=== PATIENT | female | born 1975 | race African-American/Black ===

== ENCOUNTER 2019-03-31 06:44 | Inpatient (IN) | payer OTHER ==
[~2019-03-31] VITALS: Ht 170.2 cm; Wt 94.8 kg
[~2019-03-31 06:44] MED LIST: AZIT250T6 PO; PRED20TA PO
[2019-03-31] MEDS ORDERED: IV NORMAL SALINE 1000ML BAG 1,000 ML IV SCH (06:57)
[2019-03-31] MEDS ORDERED: MECLIZINE HCL 12.5 MG TABLET. PO ONE (07:00)
--- NOTE | 2019-03-31 07:05 | PHYS DOC ---
Past Medical History Past Medical History: Hypertension Past Surgical History: No Surgical History Smoking: Cigarettes (non-smoker) Alcohol Use: Occasionally Drug Use: None Adult General Chief Complaint Chief Complaint: DIZZY/LIGHT HEADED HPI HPI Patient is a 43 y/o female who presents to the ED for evaluation of dizziness. Patient states that she awakened this morning and tried to get out of bed and felt very dizzy. She describes her dizziness both as a sense of rotation as well as a lightheadedness. She has not had any hearing changes or tinnitus, but reports some generalized blurred vision, but is able to see clearly when focusing. Position changes and movements, especially going from laying to sitting up seemed to worsen her dizziness. She has not had any numbness or weakness, reports a mild headache but has had similar headaches and "migraines" in the past, and this headache is not as severe as her prior headaches, she describes her headache is mild. She denies any chest pain shortness of breath. She states she had one prior episode several years ago while , which was attributed to dehydration at the time. The patient states she did vomit a few times, and is having some soreness in her epigastric area secondary to the vomiting, but other than that is not having any pain. Other than as stated above, there are no alleviating or exacerbating factors to the patient's symptoms. Review of Systems Review of Systems Constitutional: Denies fever or chills [] Eyes: Denies redness, or eye pain [] HENT: Denies nasal congestion or sore throat, denies otalgia, hearing changes, or tinnitus. [] Respiratory: Denies cough or shortness of breath [] Cardiovascular: The patient denies any shortness of breath, chest pain, palpitations, or orthopnea [] GI: Denies abdominal pain, bloody stools or diarrhea [] : Denies dysuria or hematuria [] Musculoskeletal: Denies back pain or joint pain [] Integument: Denies rash or skin lesions [] Neurologic: Denies focal weakness or sensory changes [] Endocrine: Denies polyuria or polydipsia [] All other systems were reviewed and found to be within normal limits, except as documented in this note. Current Medications Current Medications Current Medications Medications (Trade) Dose Ordered Sig/Mt Start Time Stop Time Status Last Admin Dose Admin Lorazepam (Ativan Inj) 0.5 mg 1X ONCE 1010/19 07:00 03/31/19 07:01 DC 03/31/19 07:42 0.5 MG Meclizine HCl (Antivert) 50 mg 1X ONCE 03/31/19 07:00 03/31/19 07:01 DC 03/31/19 07:41 50 MG Sodium Chloride 1,000 ml @ 1,000 mls/hr Q1H 03/31/19 06:57 03/31/19 07:56 DC 03/31/19 07:43 1,000 MLS/HR Allergies Allergies Allergies Coded Allergies Type Severity Reaction Last Updated Verified Penicillins Allergy Intermediate rash 04/23/17 Yes Physical Exam Physical Exam PHYSICAL EXAM: CONSTITUTIONAL: Well developed, well nourished HEAD: normocephalic, atraumatic EENT: PERRL, EOMI. there is no ongoing nystagmus at rest, orthopnea or movement. Conjunctivae normal color, sclerae non-icteric; moist mucous membranes. Tympanic membranes are normal bilaterally. NECK: Supple, non-tender; no meningismus. LUNGS: Lungs CTA, breathing even and unlabored. Normal air movement. HEART: Regular rate and rhythm, no murmur CHEST: No deformity; non-tender ABDOMEN: The abdomen is soft, and non-tender, no masses or bruits. EXTREM: Normal ROM; no deformity, no calf tenderness. Normal pulses palpable in all extremities. There is no pedal edema. SKIN: No rash; no diaphoresis NEURO: Alert; normal speech and cognition; CN's grossly intact; strength grossly intact without focal deficit. Lujvzh-yyyk-[id number] and heel castillo testing is normal. Visual [place] are intact by confrontation. Aguila-Hallpike maneuver is positive for reproduction of vertigo with the head to the left. BACK: No CVA TTP. Current Patient Data Vital Signs Vital Signs Date Time Temp Pulse Resp B/P (MAP) Pulse Ox O2 Delivery O2 Flow Rate FiO2 03/31/19 07:39 92 18 100 03/31/19 06:44 98.1 140/90 (107) Room Air 98.1 Lab Values Laboratory Tests Test 03/31/19 07:08 White Blood Count 10.5 x10^3/uL (4.0-11.0) Red Blood Count 4.71 x10^6/uL (3.50-5.40) Hemoglobin 13.0 g/dL (12.0-15.5) Hematocrit 38.8 % (36.0-47.0) Mean Corpuscular Volume 83 fL (79-100) Mean Corpuscular Hemoglobin 28 pg (25-35) Mean Corpuscular Hemoglobin Concent 33 g/dL (31-37) Red Cell Distribution Width 14.4 % (11.5-14.5) Platelet Count 167 x10^3/uL (140-400) Neutrophils (%) (Auto) 91 % (31-73) H Lymphocytes (%) (Auto) 6 % (24-48) L Monocytes (%) (Auto) 3 % (0-9) Eosinophils (%) (Auto) 0 % (0-3) Basophils (%) (Auto) 0 % (0-3) Neutrophils # (Auto) 9.6 x10^3/uL (1.8-7.7) H Lymphocytes # (Auto) 0.6 x10^3/uL (1.0-4.8) L Monocytes # (Auto) 0.3 x10^3/uL (0.0-1.1) Eosinophils # (Auto) 0.0 x10^3/uL (0.0-0.7) Basophils # (Auto) 0.0 x10^3/uL (0.0-0.2) Segmented Neutrophils % 90 % (35-66) H Band Neutrophils % 2 % (0-9) Lymphocytes % 7 % (24-48) L Monocytes % 1 % (0-10) Platelet Estimate Adequate (ADEQUATE) Sodium Level 138 mmol/L (136-145) Potassium Level 4.0 mmol/L (3.5-5.1) Chloride Level 103 mmol/L (98-107) Carbon Dioxide Level 25 mmol/L (21-32) Anion Gap 10 (6-14) Blood Urea Nitrogen 9 mg/dL (7-20) Creatinine 1.0 mg/dL (0.6-1.0) Estimated GFR (Cockcroft-Gault) 73.2 BUN/Creatinine Ratio 9 (6-20) Glucose Level 141 mg/dL (70-99) H Calcium Level 9.5 mg/dL (8.5-10.1) Total Bilirubin 0.4 mg/dL (0.2-1.0) Aspartate Amino Transferase (AST) 14 U/L (15-37) L Alanine Aminotransferase (ALT) 16 U/L (14-59) Alkaline Phosphatase 69 U/L (46-116) Troponin I Quantitative < 0.017 ng/mL (0.000-0.055) Total Protein 7.9 g/dL (6.4-8.2) Albumin 3.9 g/dL (3.4-5.0) Albumin/Globulin Ratio 1.0 (1.0-1.7) Laboratory Tests 03/31/19 07:08 Laboratory Tests 03/31/19 07:08 EKG EKG []Normal sinus rhythm with a normal rate, leftward axis, normal intervals, there are no acute ischemic ST/T changes. Poor anterior R-wave progression is present. Radiology/Procedures Radiology/Procedures PROCEDURE: CT HEAD WO CONTRAST EXAM: CT Head without IV contrast CLINICAL HISTORY: Dizziness COMPARISON: None. TECHNIQUE: Routine CT of the head without contrast. Soft tissues and bone windows were reviewed. PQRS compliance statement - One or more of the following individualized dose reduction techniques were utilized for this study: 1. Automated exposure control 2. Adjustment of the mA and/or kV according to patient size 3. Use of iterative reconstruction technique FINDINGS: There is no evidence of hemorrhage, mass or extra-axial fluid collection. Gamez-white differentiation is maintained with no evidence of edema. There is no mass effect or shift of the intracranial structures. The ventricles, basilar cisterns and cortical sulci are normal in size and configuration for the patients stated age. The cerebellum and brainstem are unremarkable. The calvarium demonstrates no evidence of fracture or focal lesion. There is normal aeration of the visualized paranasal sinuses and mastoid air cells. The visualized portions of the orbits are normal. IMPRESSION: No evidence for acute intracranial process.[] Course & Med Decision Making Course & Med Decision Making Pertinent Labs and Imaging studies reviewed. (See chart for details) []9:05 AM: The patient's condition remained stable, she still remains with dizziness, and is unable to ambulate secondary to her dizziness. She was poorly tolerant to the Ezra-Hallpike maneuver, I am hesitant to try the Chivo maneuver at this time for further medication. I discussed the case with the hospitalist will admit the patient for further evaluation and management. Dragon Disclaimer Dragon Disclaimer This electronic medical record was generated, in whole or in part, using a voice recognition dictation system. Departure Departure Impression: Primary Impression: Vertigo Disposition: 09 ADMITTED INPATIENT Admitting Physician: DARSHANA Condition: STABLE Referrals: NO PCP (PCP) LANDY MEJIA MD Mar 31, 2019 07:05
[2019-03-31 07:29] LABS: BASO % 0 % (0-3); EOS % 0 % (0-3); HEMATOCRIT 38.8 % (36.0-47.0); LYMPH # 0.6 x10^3/uL (1.0-4.8); LYMPH % 6 % (24-48); MEAN CORPUSCULAR HEMOGLOBIN 28 pg (25-35); MEAN CORPUSCULAR HGB CONC 33 g/dL (31-37); MEAN CORPUSCULAR VOLUME 83 fL (79-100); MONO # 0.3 x10^3/uL (0.0-1.1); MONO % 3 % (0-9); NEUT # 9.6 x10^3/uL (1.8-7.7); NEUT % 91 % (31-73); PLATELET COUNT 167 x10^3/uL (140-400); RED BLOOD COUNT 4.71 x10^6/uL (3.50-5.40); RED CELL DISTRIBUTION WIDTH 14.4 % (11.5-14.5); WHITE BLOOD COUNT 10.5 x10^3/uL (4.0-11.0)
[2019-03-31 07:38] LABS: CALCIUM 9.5 mg/dL (8.5-10.1); GFR 73.2
[2019-03-31 07:43] LABS: ALBUMIN 3.9 g/dL (3.4-5.0); TOTAL BILIRUBIN 0.4 mg/dL (0.2-1.0); TOTAL PROTEIN 7.9 g/dL (6.4-8.2)
--- NOTE | 2019-03-31 07:46 | RAD ---
EXAM: CT Head without IV contrast CLINICAL HISTORY: Dizziness COMPARISON: None. TECHNIQUE: Routine CT of the head without contrast. Soft tissues and bone windows were reviewed. PQRS compliance statement - One or more of the following individualized dose reduction techniques were utilized for this study: 1. Automated exposure control 2. Adjustment of the mA and/or kV according to patient size 3. Use of iterative reconstruction technique FINDINGS: There is no evidence of hemorrhage, mass or extra-axial fluid collection. Gamez-white differentiation is maintained with no evidence of edema. There is no mass effect or shift of the intracranial structures. The ventricles, basilar cisterns and cortical sulci are normal in size and configuration for the patients stated age. The cerebellum and brainstem are unremarkable. The calvarium demonstrates no evidence of fracture or focal lesion. There is normal aeration of the visualized paranasal sinuses and mastoid air cells. The visualized portions of the orbits are normal. IMPRESSION: No evidence for acute intracranial process. Electronically signed by: Ede Hanson MD (03/31/2019 7:43 AM) [facility]
[2019-03-31 07:53] LABS: % BANDS 2 % (0-9); % LYMPHS 7 % (24-48); % MONOS 1 % (0-10); % SEGS 90 % (35-66); PLT ESTIMATE ADEQUATE (ADEQUATE)
--- NOTE | 2019-03-31 08:15 | EKG ---
[facility] [address] [place] [address] Test Date: 2019-03-31 Test Time: 06:49:11 Pat Name: KIRA NAIDU Department: Room: Gender: F Marketing Services Manager: : 1975 Requested By: LANDY MEJIA Order Number: [id number] Reading MD: Jose Luis Guzman MD Measurements Intervals [place] Rate: 94 P: 3 W[place]: 166 QRS: -26 QRSD: 74 T: -2 QT: 340 QTc: 430 Interpretive Statements SINUS RHYTHM NON-SPECIFIC ST/T CHANGES Electronically Signed On 04-10-2019 11:51:35 CDT by Jose Luis Guzman MD
[2019-03-31] MEDS ORDERED: MECLIZINE HCL 12.5 MG TABLET. PO PRN (11:30)
[2019-03-31 11:50] VITALS: BP 143/94
--- NOTE | 2019-03-31 12:33 | HP ---
ADMIT DATE: 03/31/2019 CHIEF COMPLAINT: Dizziness. 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 Basically, she has dizziness that has been occurring since she awakened. She took some [id number]-[id number] meds that did not seem to help. Rated at 7/10 she has some generalized weakness ____ vision and some nausea. I discussed the case with ER physician. Initial CAT scan does not show any major problems, but she has intractable vertigo. We are going to consult Neurology and give her some meclizine and fluids. PAST MEDICAL HISTORY: Hypertension. ALLERGIES: PENICILLIN. FAMILY HISTORY: Hypertension. SOCIAL HISTORY: She is . She does not drink, smoke, or take drugs. She works at a daycare. MEDICATIONS: Reviewed, please refer to the MRAD. REVIEW OF SYSTEMS: GENERAL: No history of weight change, weakness or fevers. SKIN: No bruising, hair changes or rashes. EYES: No blurred, double or loss of vision. NOSE AND THROAT: No history of nosebleeds, hoarseness or sore throat. HEART: No history of palpitations, chest pain or shortness of breath on exertion. LUNGS: Denies cough, hemoptysis, wheezing or shortness of breath. GASTROINTESTINAL: She complains of nausea. GENITOURINARY: No history of frequency, urgency, hesitancy or nocturia. NEUROLOGIC: She complains of dizziness. PSYCHIATRIC: No history of panic, anxiety or depression. ENDOCRINE: No history of heat or cold intolerance, polyuria or polydipsia. EXTREMITIES: Denies muscle weakness, joint pain, pain on walking or stiffness. PHYSICAL EXAMINATION: VITALS: Within normal limits and are stable. GENERAL: No apparent distress. Alert and oriented. HEENT: Head is normocephalic, atraumatic, pupils were equally round and reactive to light and accommodation. NECK: Supple, no JVD, no thyromegaly was noted. LUNGS: Clear to auscultation in all lung [place] without rhonchi or wheezing. HEART: RRR, S1, S2 present. Peripheral pulses intact, no obvious murmurs were noted. ABDOMEN: Soft, nontender. Positive bowel sounds no organomegaly, normal bowel sounds. EXTREMITIES: Without any cyanosis, clubbing, or edema. Pedal pulses intact, Homans sign is negative. NEUROLOGIC: Normal speech, normal tone. A & O x3, moves all extremities, no obvious focal deficits. PSYCHIATRIC: Normal affect, normal mood. Stable. SKIN: No ulcerations or rashes, good skin turgor, no jaundice. VASCULAR: Good capillary refill, neurovascular bundle appears to be intact. LABORATORY DATA: Hematology is normal. Electrolytes are normal. ASSESSMENT AND PLAN: Vertigo, suspect vestibulitis. We will go ahead and admit the patient, give her p.r.n. Antivert and IV fluids. Consult Neurology. Suspect she might need an MRI, but we will await Neurology's input. DVT prophylaxis. Home meds, PT, OT. ROJAS RUEDA DO DR: LB/deisy JOB#: [id number] / [id number]
[2019-03-31] MEDS: IV NORMAL SALINE 1000ML BAG 1,000 ML IV SCH (13:00)
[2019-03-31] MEDS ORDERED: METO25TA4 PO (13:39)
--- NOTE | 2019-03-31 14:53 | RAD ---
EXAM: Brain MRI without contrast. HISTORY: Dizziness. Ataxia. TECHNIQUE: Multiplanar, multisequence magnetic resonance imaging of the brain was performed without contrast. COMPARISON: Head CT dated 03/31/2019. FINDINGS: There is no restricted diffusion to suggest acute or subacute infarction. There is no susceptibility effect to suggest hemorrhage. There is no mass effect or midline shift. There is no hydrocephalus. No convincing white matter lesion is seen. The orbits, paranasal sinuses and mastoid air cells are unremarkable. There are normal flow voids within the cerebral vessels. There is mild diffuse calvarial thickening. IMPRESSION: No acute intracranial finding. Electronically signed by: Kristen Mena MD (03/31/2019 2:50 PM) [facility]
[2019-03-31 15:00] VITALS: BP 132/98
[2019-03-31 15:02] VITALS: BP 138/98
[2019-03-31 15:04] VITALS: BP 133/103
[2019-03-31 15:06] LABS: BARBITURATES NEG (NEG); BENZODIAZEPINES NEG (NEG); CANNABINOIDS NEG (NEG); COCAINE NEG (NEG); METHADONE NEG (NEG); OPIATES NEG (NEG); PHENCYCLIDINE NEG (NEG)
[2019-03-31 15:12] LABS: AMPHETAMINE/METHAMPHETAMINE NEG (NEG)
[2019-03-31 19:00] VITALS: BP 135/100
[2019-03-31] MEDS: METOPROLOL TART IMMED RELEASE 25 MG TABLET. PO SCH (19:21)
--- NOTE | 2019-03-31 19:40 | PDOC2 ---
NEUROLOGY CONSULT Date of Admission Date of Admission DATE: 03/31/19 TIME: 19:12 Reason for Consult Reason for Consult: IMPRESSION: Vertigo. Ataxia. Nausea. Vomiting. HTN. DM? Obesity. No evidence of acute CVA this time. RECOMMENDATIONS/PLAN: Meclizine 25 mg tid. Vit B6 10 mg daily. Lab: see orders. Treat medical diseases. OT/PT. 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 She has symptoms of dizziness, vertigo, nausea, vomiting and sense of room spinning and self spinning since she awakened this morning. She stated not able to maintain her physical activity and walk normally and she felt weakness in extremities. She took some [id number] meds that did not seem to help, so she came to the ER seeking medical attention. Her initial CAT scan was negative, but she has intractable vertigo. Neurology was consulted and acute CVA was ruled out. PAST MEDICAL HISTORY: Hypertension. Vertigo episode x 1 in past. PAST SURGERY HISTORY: No major surgery recently. FAMILY HISTORY: Hypertension. ALLERGIES: PENICILLIN. MEDICATIONS: Refer to MAR SOCIAL HISTORY: Lives at home. Denies smoking, drinking, and illicit drug use. REVIEW OF SYSTEMS: Constitutional: No malnutrition, weight loss, cachexia. Head: No traumatic brain or head injury. Skin: No edema, or rash. Ear: No infection, tinnitus. Eyes: No vision loss or color blindness. Nose: No bleeding or purulent discharges. Hearing: No hearing decrease. Neck: No injury. Breast: No history of cancer, masses,or discharges. Cardiac: HTN, HLD. Pulmonary: No COPD. GI: No GI ulcer, GI bleeding. Urinary/genital: UTI. Endocrinologic: Obesity. Skeletomuscular: No muscular atrophy, deformity. Neurological: see HP. Psychiatric: Denies drug use/abuse. Otherwise, not [id number] review of systems. PHYSICAL EXAMINATION: General appearance is in subacute distress. HEENT: Normocephalic and nontraumatic. Eyes, nose, ears, and throat are unremarkable. Neck is supple. No lymphadenopathy. No crepitus. Cardiovascular: S1, S2, regular rate and rhythm. Pulmonary: Clear to auscultation bilaterally. Abdomen: Bowel sounds are positive. Extremities: No rash, lesions, or edema. No restriction of range of motion NEUROLOGICAL EXAMINATION: Alert Oriented to time, place and person. PERRL. EOMI. CN: no focal findings. Muscle tone: within normal. Muscle strength: 5 DTR: 2 Plantar reflex: Flexor response bilaterally Gait: Not willing to walk due to dizziness and vertigo. Sensory exam: no abnormal findings. No cerebellar signs elicited. F-T-N test accurate. Current Medications Current Medications Current Medications Lorazepam (Ativan Inj) 0.5 mg 1X ONCE IV Last administered on 03/31/19at 07:42; Start 03/31/19 at 07:00; Stop 03/31/19 at 07:01; Status DC Sodium Chloride 1,000 ml @ 1,000 mls/hr Q1H IV Last administered on 03/31/19at 07:43; Start 03/31/19 at 06:57; Stop 03/31/19 at 07:56; Status DC Meclizine HCl (Antivert) 50 mg 1X ONCE PO Last administered on 03/31/19at 07:41; Start 03/31/19 at 07:00; Stop 03/31/19 at 07:01; Status DC Meclizine HCl (Antivert) 12.5 mg PRN Q6HRS PRN PO DIZZINESS; Start 03/31/19 at 11:30 Sodium Chloride 1,000 ml @ 75 mls/hr [id number] IV Last administered on 03/31/19at 13:00; Start 03/31/19 at 11:30 Lorazepam (Ativan Inj) 1 mg PRN Q4HRS PRN IVP ANXIETY / AGITATION; Start 03/31/19 at 15:00 Metoprolol Tartrate (Lopressor) 12.5 mg DAILY PO ; Start 03/31/19 at 15:00 Active Scripts Active Azithromycin Tablet (Azithromycin) 250 Mg Tablet 1 Pkg PO UD Prednisone 20 Mg Tablet 2 Tab PO DAILY Reported Metoprolol Tartrate 25 Mg Tablet 25 Mg PO DAILY Allergies Allergies: Allergies Coded Allergies Type Severity Reaction Last Updated Verified Penicillins Allergy Intermediate rash 04/23/17 Yes ROS Review of System The patient denies any associated fevers, chills, headache, ear pain, rhinorrhea, sore throat, stiff neck, productive cough, chest pain, shortness of breath, back or flank pain, abdominal pain, nausea, vomiting, diarrhea, constipation, dysuria, rash, numbness, weakness, tingling, incontinence, difficulty ambulating, or diaphoresis. Physical Exam Physical Exam General: Well developed, well nourished, no acute distress, well appearing HEENT: Pupils equally round and reactive to light, EOMI, no discharge, normal conjunctiva Neck: Supple, no nuchal rigidity, no JVD, trachea midline, no tenderness Cardiac: RRR, no murmurs, no gallops, no rubs Chest/Lungs: CTAB, no wheeze, no rhonchi, no crackles Abdomen: soft, non-distended, no guarding, no peritoneal signs, non-tender Back: No tenderness Extremities: no edema, pulses intact, non-tender,capillary refill <3 sec bilateral upper and lower extremities, Neuro: Alert and oriented x 4, no focal deficits, normal speech Vitals Vitals: Vital Signs Date Time Temp Pulse Resp B/P (MAP) Pulse Ox O2 Delivery O2 Flow Rate FiO2 03/31/19 15:04 106 133/103 (113) 03/31/19 15:00 98.9 16 98 Room Air 98.9 Labs Labs Laboratory Tests Test 03/31/19 07:08 03/31/19 14:10 White Blood Count 10.5 x10^3/uL (4.0-11.0) Red Blood Count 4.71 x10^6/uL (3.50-5.40) Hemoglobin 13.0 g/dL (12.0-15.5) Hematocrit 38.8 % (36.0-47.0) Mean Corpuscular Volume 83 fL (79-100) Mean Corpuscular Hemoglobin 28 pg (25-35) Mean Corpuscular Hemoglobin Concent 33 g/dL (31-37) Red Cell Distribution Width 14.4 % (11.5-14.5) Platelet Count 167 x10^3/uL (140-400) Neutrophils (%) (Auto) 91 % (31-73) Lymphocytes (%) (Auto) 6 % (24-48) Monocytes (%) (Auto) 3 % (0-9) Eosinophils (%) (Auto) 0 % (0-3) Basophils (%) (Auto) 0 % (0-3) Neutrophils # (Auto) 9.6 x10^3/uL (1.8-7.7) Lymphocytes # (Auto) 0.6 x10^3/uL (1.0-4.8) Monocytes # (Auto) 0.3 x10^3/uL (0.0-1.1) Eosinophils # (Auto) 0.0 x10^3/uL (0.0-0.7) Basophils # (Auto) 0.0 x10^3/uL (0.0-0.2) Segmented Neutrophils % 90 % (35-66) Band Neutrophils % 2 % (0-9) Lymphocytes % 7 % (24-48) Monocytes % 1 % (0-10) Platelet Estimate Adequate (ADEQUATE) Sodium Level 138 mmol/L (136-145) Potassium Level 4.0 mmol/L (3.5-5.1) Chloride Level 103 mmol/L (98-107) Carbon Dioxide Level 25 mmol/L (21-32) Anion Gap 10 (6-14) Blood Urea Nitrogen 9 mg/dL (7-20) Creatinine 1.0 mg/dL (0.6-1.0) Estimated GFR (Cockcroft-Gault) 73.2 BUN/Creatinine Ratio 9 (6-20) Glucose Level 141 mg/dL (70-99) Calcium Level 9.5 mg/dL (8.5-10.1) Total Bilirubin 0.4 mg/dL (0.2-1.0) Aspartate Amino Transf (AST/SGOT) 14 U/L (15-37) Alanine Aminotransferase (ALT/SGPT) 16 U/L (14-59) Alkaline Phosphatase 69 U/L (46-116) Troponin I Quantitative < 0.017 ng/mL (0.000-0.055) Total Protein 7.9 g/dL (6.4-8.2) Albumin 3.9 g/dL (3.4-5.0) Albumin/Globulin Ratio 1.0 (1.0-1.7) Urine Opiates Screen Neg (NEG) Urine Methadone Screen Neg (NEG) Urine Barbiturates Neg (NEG) Urine Phencyclidine Screen Neg (NEG) Urine Amphetamine/Methamphetamine Neg (NEG) Urine Benzodiazepines Screen Neg (NEG) Urine Cocaine Screen Neg (NEG) Urine Cannabinoids Screen Neg (NEG) Urine Ethyl Alcohol Neg (NEG) Laboratory Tests Test 03/31/19 07:08 03/31/19 14:10 White Blood Count 10.5 x10^3/uL (4.0-11.0) Red Blood Count 4.71 x10^6/uL (3.50-5.40) Hemoglobin 13.0 g/dL (12.0-15.5) Hematocrit 38.8 % (36.0-47.0) Mean Corpuscular Volume 83 fL (79-100) Mean Corpuscular Hemoglobin 28 pg (25-35) Mean Corpuscular Hemoglobin Concent 33 g/dL (31-37) Red Cell Distribution Width 14.4 % (11.5-14.5) Platelet Count 167 x10^3/uL (140-400) Neutrophils (%) (Auto) 91 % (31-73) Lymphocytes (%) (Auto) 6 % (24-48) Monocytes (%) (Auto) 3 % (0-9) Eosinophils (%) (Auto) 0 % (0-3) Basophils (%) (Auto) 0 % (0-3) Neutrophils # (Auto) 9.6 x10^3/uL (1.8-7.7) Lymphocytes # (Auto) 0.6 x10^3/uL (1.0-4.8) Monocytes # (Auto) 0.3 x10^3/uL (0.0-1.1) Eosinophils # (Auto) 0.0 x10^3/uL (0.0-0.7) Basophils # (Auto) 0.0 x10^3/uL (0.0-0.2) Segmented Neutrophils % 90 % (35-66) Band Neutrophils % 2 % (0-9) Lymphocytes % 7 % (24-48) Monocytes % 1 % (0-10) Platelet Estimate Adequate (ADEQUATE) Sodium Level 138 mmol/L (136-145) Potassium Level 4.0 mmol/L (3.5-5.1) Chloride Level 103 mmol/L (98-107) Carbon Dioxide Level 25 mmol/L (21-32) Anion Gap 10 (6-14) Blood Urea Nitrogen 9 mg/dL (7-20) Creatinine 1.0 mg/dL (0.6-1.0) Estimated GFR (Cockcroft-Gault) 73.2 BUN/Creatinine Ratio 9 (6-20) Glucose Level 141 mg/dL (70-99) Calcium Level 9.5 mg/dL (8.5-10.1) Total Bilirubin 0.4 mg/dL (0.2-1.0) Aspartate Amino Transf (AST/SGOT) 14 U/L (15-37) Alanine Aminotransferase (ALT/SGPT) 16 U/L (14-59) Alkaline Phosphatase 69 U/L (46-116) Troponin I Quantitative < 0.017 ng/mL (0.000-0.055) Total Protein 7.9 g/dL (6.4-8.2) Albumin 3.9 g/dL (3.4-5.0) Albumin/Globulin Ratio 1.0 (1.0-1.7) Urine Opiates Screen Neg (NEG) Urine Methadone Screen Neg (NEG) Urine Barbiturates Neg (NEG) Urine Phencyclidine Screen Neg (NEG) Urine Amphetamine/Methamphetamine Neg (NEG) Urine Benzodiazepines Screen Neg (NEG) Urine Cocaine Screen Neg (NEG) Urine Cannabinoids Screen Neg (NEG) Urine Ethyl Alcohol Neg (NEG) BRIAN VAUGHAN MD Mar 31, 2019 19:40
[2019-03-31 19:56] LABS: U PREG PATIENT NEGATIVE (NEG)
[2019-03-31] MEDS: PYRIDOXINE 50 MG TABLET. PO SCH (21:21)
[2019-03-31] MEDS: ACETAMINOPHEN 325 MG TABLET. PO PRN (22:54)
[2019-03-31 23:00] VITALS: BP 144/96
[2019-04-01] MEDS: IV NORMAL SALINE 1000ML BAG 1,000 ML IV SCH (02:35)
[2019-04-01] MEDS ORDERED: cloNIDine HCL 0.1 MG TABLET PO PRN (02:45)
[2019-04-01 03:00] VITALS: BP 143/87
[2019-04-01 07:00] VITALS: BP 127/95
[2019-04-01] MEDS: ACETAMINOPHEN 325 MG TABLET. PO PRN ×2 (07:59→15:59)
[2019-04-01] MEDS: PYRIDOXINE 50 MG TABLET. PO SCH (07:59)
[2019-04-01] MEDS: METOPROLOL TART IMMED RELEASE 25 MG TABLET. PO SCH (08:00)
[2019-04-01] MEDS ORDERED: FLU VAX QS 2019-20 (36MOS+)/PF 0.5 ML SYRINGE. VAX IM ONE (08:00)
[2019-04-01] MEDS ORDERED: MECL12.52 PO (08:29)
[2019-04-01] MEDS ORDERED: PYRI50TA6 PO (08:29)
--- NOTE | 2019-04-01 09:01 | PDOC3 ---
Discharge Summary Visit Information Date of Admission: Mar 31, 2019 Date of Discharge: Apr 01, 2019 Admitting Diagnosis Comment: Vertigo, BPPV Accel HTN POA, resolved Final Diagnosis Problems Medical Problems: (1) Vertigo Status: Acute Brief Hospital Course Allergies Allergies Coded Allergies Type Severity Reaction Last Updated Verified Penicillins Allergy Intermediate rash 04/23/17 Yes Vital Signs Vital Signs Date Time Temp Pulse Resp B/P (MAP) Pulse Ox O2 Delivery O2 Flow Rate FiO2 04/01/19 08:00 90 127/95 04/01/19 07:50 Room Air 04/01/19 07:00 98.0 18 96 98.0 Lab Results Laboratory Tests Test 03/31/19 07:08 03/31/19 14:10 03/31/19 19:42 White Blood Count 10.5 x10^3/uL (4.0-11.0) Red Blood Count 4.71 x10^6/uL (3.50-5.40) Hemoglobin 13.0 g/dL (12.0-15.5) Hematocrit 38.8 % (36.0-47.0) Mean Corpuscular Volume 83 fL (79-100) Mean Corpuscular Hemoglobin 28 pg (25-35) Mean Corpuscular Hemoglobin Concent 33 g/dL (31-37) Red Cell Distribution Width 14.4 % (11.5-14.5) Platelet Count 167 x10^3/uL (140-400) Neutrophils (%) (Auto) 91 % (31-73) Lymphocytes (%) (Auto) 6 % (24-48) Monocytes (%) (Auto) 3 % (0-9) Eosinophils (%) (Auto) 0 % (0-3) Basophils (%) (Auto) 0 % (0-3) Neutrophils # (Auto) 9.6 x10^3/uL (1.8-7.7) Lymphocytes # (Auto) 0.6 x10^3/uL (1.0-4.8) Monocytes # (Auto) 0.3 x10^3/uL (0.0-1.1) Eosinophils # (Auto) 0.0 x10^3/uL (0.0-0.7) Basophils # (Auto) 0.0 x10^3/uL (0.0-0.2) Segmented Neutrophils % 90 % (35-66) Band Neutrophils % 2 % (0-9) Lymphocytes % 7 % (24-48) Monocytes % 1 % (0-10) Platelet Estimate Adequate (ADEQUATE) Sodium Level 138 mmol/L (136-145) Potassium Level 4.0 mmol/L (3.5-5.1) Chloride Level 103 mmol/L (98-107) Carbon Dioxide Level 25 mmol/L (21-32) Anion Gap 10 (6-14) Blood Urea Nitrogen 9 mg/dL (7-20) Creatinine 1.0 mg/dL (0.6-1.0) Estimated GFR (Cockcroft-Gault) 73.2 BUN/Creatinine Ratio 9 (6-20) Glucose Level 141 mg/dL (70-99) Calcium Level 9.5 mg/dL (8.5-10.1) Total Bilirubin 0.4 mg/dL (0.2-1.0) Aspartate Amino Transf (AST/SGOT) 14 U/L (15-37) Alanine Aminotransferase (ALT/SGPT) 16 U/L (14-59) Alkaline Phosphatase 69 U/L (46-116) Troponin I Quantitative < 0.017 ng/mL (0.000-0.055) Total Protein 7.9 g/dL (6.4-8.2) Albumin 3.9 g/dL (3.4-5.0) Albumin/Globulin Ratio 1.0 (1.0-1.7) Urine Opiates Screen Neg (NEG) Urine Methadone Screen Neg (NEG) Urine Barbiturates Neg (NEG) Urine Phencyclidine Screen Neg (NEG) Urine Amphetamine/Methamphetamine Neg (NEG) Urine Benzodiazepines Screen Neg (NEG) Urine Cocaine Screen Neg (NEG) Urine Cannabinoids Screen Neg (NEG) Urine Ethyl Alcohol Neg (NEG) Urine Test Negative (NEG) Laboratory Tests Test 03/31/19 14:10 03/31/19 19:42 Urine Opiates Screen Neg (NEG) Urine Methadone Screen Neg (NEG) Urine Barbiturates Neg (NEG) Urine Phencyclidine Screen Neg (NEG) Urine Amphetamine/Methamphetamine Neg (NEG) Urine Benzodiazepines Screen Neg (NEG) Urine Cocaine Screen Neg (NEG) Urine Cannabinoids Screen Neg (NEG) Urine Ethyl Alcohol Neg (NEG) Urine Test Negative (NEG) Brief Hospital Course Ms. Escobar is a 43 old [sex] who presented with [ ]vertigo, clinically BPPV, MRI and CT brain neg, NAuseaus, BP high side, on BB at home, I added some clonidine prn, but also has a headache, I started some celebrex 100 BID and left zofran ODT Rx, If she feels better later, she can go home, no pT needs, Dw Pt seen and examined COnsults: neuro Proc; CT head and mRI brain dc < 30 mins Discharge Information Condition at Discharge: Improved, Stable Disposition/Orders: D/C to Home Scheduled Azithromycin (Azithromycin Tablet) 250 Mg Tablet, 1 PKG PO UD, #6 Prescribed by: JACOBY ANN PA-C on 04/23/17 1720 Metoprolol Tartrate (Metoprolol Tartrate) 25 Mg Tablet, 25 MG PO DAILY for HTN, #60 Ref 0 (Reported) Entered as Reported by: ANGI TERRELL on 03/31/191338 Last Taken: 12.5MG. on 03/31/191336 Last Action: New Order on 03/31/191338 by ANGI TERRELL Prednisone (Prednisone) 20 Mg Tablet, 2 TAB PO DAILY, #20 Prescribed by: JACOBY ANN PA-C on 04/23/17 1720 Pyridoxine Hcl (Vitamin B-6) 50 Mg Tablet, 12.5 MG PO DAILY for vertigo, #60 Prescribed by: ADRIENNE PAULINO on 04/01/19 08 Scheduled PRN Meclizine Hcl (Meclizine Hcl) 12.5 Mg Tablet, 12.5 MG PO PRN Q6HRS PRN for DIZZINESS, #60 Prescribed by: ADRIENNE PAULINO on 04/01/19828 ADRIENNE PAULINO MD Apr 01, 2019 09:01
[2019-04-01] MEDS: MECLIZINE HCL 12.5 MG TABLET. PO SCH ×3 (10:08→21:04)
[2019-04-01] MEDS: CELECOXIB 100 MG CAPSULE. PO SCH ×2 (10:08→21:05)
--- NOTE | 2019-04-01 10:14 | NUR ---
Patient was only administered 12.5 of the Meclizine ordered for TID due to recently administered PRN Meclizine 12.5. Will continue to monitor patient.
[2019-04-01 11:00] VITALS: BP 125/83
[2019-04-01 15:00] VITALS: BP 133/88
[2019-04-01] MEDS ORDERED: diazePAM 5 MG TABLET PO ONE (16:30)
--- NOTE | 2019-04-01 17:11 | PDOC ---
PROGRESS NOTES Assessment Assessment Vertigo. Ataxia. Nausea. Vomiting. HTN. DM? Obesity. No evidence of acute CVA this time. RECOMMENDATIONS/PLAN: Meclizine 25 mg tid x 1 week. Vit B6 10 mg daily. Treat medical diseases. OT/PT. See ENT at outpatient. FU with PCP. Discussed with her at bedside on 04/01/91. 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 She has symptoms of dizziness, vertigo, nausea, vomiting and sense of room spinning and self spinning since she awakened this morning. She stated not able to maintain her physical activity and walk normally and she felt weakness in extremities. She took some [id number] meds that did not seem to help, so she came to the ER seeking medical attention. Her initial CAT scan was negative, but she has intractable vertigo. Neurology was consulted and acute CVA was ruled out. Her symptoms improved on 04/01/19. PAST MEDICAL HISTORY: Hypertension. Vertigo episode x 1 in past. PAST SURGERY HISTORY: No major surgery recently. FAMILY HISTORY: Hypertension. ALLERGIES: PENICILLIN. MEDICATIONS: Refer to MAR SOCIAL HISTORY: Lives at home. Denies smoking, drinking, and illicit drug use. REVIEW OF SYSTEMS: Constitutional: No malnutrition, weight loss, cachexia. Head: No traumatic brain or head injury. Skin: No edema, or rash. Ear: No infection, tinnitus. Eyes: No vision loss or color blindness. Nose: No bleeding or purulent discharges. Hearing: No hearing decrease. Neck: No injury. Breast: No history of cancer, masses,or discharges. Cardiac: HTN, HLD. Pulmonary: No COPD. GI: No GI ulcer, GI bleeding. Urinary/genital: UTI. Endocrinologic: Obesity. Skeletomuscular: No muscular atrophy, deformity. Neurological: see HP. Psychiatric: Denies drug use/abuse. Otherwise, not [id number] review of systems. PHYSICAL EXAMINATION: General appearance is in subacute distress. HEENT: Normocephalic and nontraumatic. Eyes, nose, ears, and throat are unremarkable. Neck is supple. No lymphadenopathy. No crepitus. Cardiovascular: S1, S2, regular rate and rhythm. Pulmonary: Clear to auscultation bilaterally. Abdomen: Bowel sounds are positive. Extremities: No rash, lesions, or edema. No restriction of range of motion NEUROLOGICAL EXAMINATION: Alert Oriented to time, place and person. PERRL. EOMI. CN: no focal findings. Muscle tone: within normal. Muscle strength: 5 DTR: 2 Plantar reflex: Flexor response bilaterally Gait: Not willing to walk due to dizziness and vertigo. Sensory exam: no abnormal findings. No cerebellar signs elicited. F-T-N test accurate. Objective Objective Vital Signs Date Time Temp Pulse Resp B/P (MAP) Pulse Ox O2 Delivery O2 Flow Rate FiO2 04/01/19 15:00 98.0 76 19 133/88 (103) 97 Room Air 98.0 Intake and Output 04/01/19 07:00 Intake Total 1300 ml Output Total 1000 ml Balance 300 ml Intake Oral 300 ml IV Total 1000 ml Output Urine Total 1000 ml # Voids 1 Vitals Signs Vitals VS - Last 72 Hours, by Label Date Time Temp Pulse Resp B/P (MAP) Pulse Ox O2 Delivery O2 Flow Rate FiO2 04/01/19 15:00 98.0 76 19 133/88 (103) 97 Room Air 98.0 04/01/19 11:00 98.1 81 17 125/83 (97) 97 Room Air 98.1 04/01/19 08:00 90 127/95 04/01/19 07:50 Room Air 04/01/19 07:00 98.0 90 18 127/95 (106) 96 Room Air 98.0 04/01/19 03:00 97.6 87 18 143/87 (105) 98 Room Air 97.6 03/31/19 23:00 100.1 97 18 144/96 (112) 96 Room Air 100.1 03/31/19 20:00 Room Air 03/31/19 19:21 106 133/93 03/31/19 19:00 100.4 109 20 135/100 (112) 98 Room Air 100.4 03/31/19 15:04 106 133/103 (113) 03/31/19 15:02 104 138/98 (111) 03/31/19 15:00 98.9 101 16 132/98 (109) 98 Room Air 98.9 03/31/19 12:00 Room Air 03/31/19 11:50 98.4 98 16 143/94 (110) 99 Room Air 98.4 03/31/19 09:39 90 18 90 03/31/19 09:09 90 18 98 03/31/19 08:09 90 18 98 03/31/19 07:39 92 18 100 03/31/19 07:20 94 18 100 Laboratory Laboratory Laboratory Tests Test 03/31/19 19:42 Urine Test Negative (NEG) Medication Medications Current Medications Acetaminophen (Tylenol) 650 mg PRN Q6HRS PRN PO HEADACHE Last administered on 04/01/19at 15:59; Start 03/31/19 at 22:45 Celecoxib (CeleBREX) 100 mg BID PO Last administered on 04/01/19at 10:08; Start 04/01/19 at 09:00 Clonidine HCl (Catapres) 0.1 mg PRN Q1HR PRN PO HYPERTENSION; Start 04/01/19 at 02:45 Diazepam (Valium) 5 mg 1X ONCE PO Last administered on 04/01/19at 16:53; Start 04/01/19 at 16:30; Stop 04/01/19 at 16:31; Status DC Diazepam (Valium) 5 mg PRN BID PRN PO ANXIETY; Start 04/01/19 at 21:00 Influenza Virus Vaccine Quadrival (Afluria Quad 2019-20 (3yr Up) Syringe) 0.5 ml ONCE ONCE VAX IM Last administered on 04/01/19at 10:10; Start 04/01/19 at 08:00; Stop 04/01/19 at 08:01; Status DC Meclizine HCl (Antivert) 25 mg TID PO Last administered on 04/01/19at 15:59; Start 04/01/19 at 09:00 Pyridoxine HCl (Vitamin B-6) 12.5 mg DAILY PO Last administered on 04/01/19at 07:59; Start 03/31/19 at 21:00 Comment Review of Relevant I have reviewed the following items evens (where applicable) has been applied. BRIAN VAUGHAN MD Apr 01, 2019 17:11
[2019-04-01 19:00] VITALS: BP 126/93
[2019-04-01] MEDS ORDERED: diazePAM 5 MG TABLET PO PRN (21:00)
[2019-04-01 23:00] VITALS: BP 126/89
[2019-04-02 03:00] VITALS: BP 145/100
[2019-04-02] MEDS ORDERED: DIAZ5TAB PO (08:32)
[2019-04-02] MEDS ORDERED: METO-239 PO (08:32)
[2019-04-02] MEDS: METOPROLOL TART IMMED RELEASE 25 MG TABLET. PO SCH ×2 (09:00→09:09)
[2019-04-02] MEDS: PYRIDOXINE 50 MG TABLET. PO SCH (09:08)
[2019-04-02] MEDS: CELECOXIB 100 MG CAPSULE. PO SCH ×2 (09:08→21:54)
[2019-04-02] MEDS: MECLIZINE HCL 12.5 MG TABLET. PO SCH ×3 (09:09→21:54)
[2019-04-02 09:34] VITALS: BP 143/104
[2019-04-02] MEDS ORDERED: diazePAM 2 MG TABLET PO PRN (10:00)
--- NOTE | 2019-04-02 10:05 | PDOC ---
PROGRESS NOTES Chief Complaint Chief Complaint vertigo, BPPV, NOT BETTER Obesity BMI 32 HEadache, hx migraines NArcotic naive History of Present Illness History of Present Illness NOT BETTER with scheduled meclizine and celebrex Eating, no emesis FArthest she can go is just to the bathroom- gets really dizzy BP high side - on metoprolol 12 ,5 qD Also on vit B complex as recommended by neuro CT brain and mRI neg PT did kim, -she got so dizzy after VAlium knocked her out PLAn: Get neuro opinion BAck down valium, 2 mg prn only COnt meclizine and celebrex for now Change to in pt status COnt PT ot today I might consider CTAngio brain - she complains of pulsatile sensation now inner left ear, also waiting on otoscope TRial abx, flonase, azithromycin (pcn allergy) NO ENT avail here TRial claritin - though sinuses are clear on CT dw MANNIE Chelsie Vitals Vitals Vital Signs Date Time Temp Pulse Resp B/P (MAP) Pulse Ox O2 Delivery O2 Flow Rate FiO2 04/02/19 09:34 98.0 89 20 143/104 (117) 94 Room Air 98.0 Physical Exam General: Alert, Oriented X3, Cooperative, No acute distress Heart: Regular rate, Normal S1, Normal S2 Lungs: Clear Abdomen: Normal bowel sounds, Soft, No tenderness Extremities: No clubbing, No cyanosis, No edema Skin: No rashes, No breakdown, No significant lesion Review of Systems Review of Systems dizzy, headache, the rest 14 pt neg Assessment and Plan Assessmemt and Plan Problems Medical Problems: (1) Vertigo Status: Acute Comment Review of Relevant I have reviewed the following items evens (where applicable) has been applied. Labs Laboratory Tests Test 03/31/19 14:10 03/31/19 19:42 Urine Opiates Screen Neg (NEG) Urine Methadone Screen Neg (NEG) Urine Barbiturates Neg (NEG) Urine Phencyclidine Screen Neg (NEG) Urine Amphetamine/Methamphetamine Neg (NEG) Urine Benzodiazepines Screen Neg (NEG) Urine Cocaine Screen Neg (NEG) Urine Cannabinoids Screen Neg (NEG) Urine Ethyl Alcohol Neg (NEG) Urine Test Negative (NEG) Medications Current Medications Lorazepam (Ativan Inj) 0.5 mg 1X ONCE IV Last administered on 03/31/19at 07:42; Start 03/31/19 at 07:00; Stop 03/31/19 at 07:01; Status DC Sodium Chloride 1,000 ml @ 1,000 mls/hr Q1H IV Last administered on 03/31/19at 07:43; Start 03/31/19 at 06:57; Stop 03/31/19 at 07:56; Status DC Meclizine HCl (Antivert) 50 mg 1X ONCE PO Last administered on 03/31/19at 07:41; Start 03/31/19 at 07:00; Stop 03/31/19 at 07:01; Status DC Meclizine HCl (Antivert) 12.5 mg PRN Q6HRS PRN PO DIZZINESS Last administered on 04/01/19at 07:59; Start 03/31/19 at 11:30; Stop 04/01/19 at 08:56; Status DC Sodium Chloride 1,000 ml @ 75 mls/hr [id number] IV Last administered on 04/01/19at 02:35; Start 03/31/19 at 11:30; Stop 04/01/19 at 08:29; Status DC Lorazepam (Ativan Inj) 1 mg PRN Q4HRS PRN IVP ANXIETY / AGITATION; Start 03/31/19 at 15:00 Metoprolol Tartrate (Lopressor) 12.5 mg DAILY PO Last administered on 04/01/19at 08:00; Start 03/31/19 at 15:00; Stop 04/02/19 at 08:31; Status DC Pyridoxine HCl (Vitamin B-6) 12.5 mg DAILY PO Last administered on 04/02/19at 09:08; Start 03/31/19 at 21:00 Acetaminophen (Tylenol) 650 mg PRN Q6HRS PRN PO HEADACHE Last administered on 04/01/19at 15:59; Start 03/31/19 at 22:45 Clonidine HCl (Catapres) 0.1 mg PRN Q1HR PRN PO HYPERTENSION; Start 04/01/19 at 02:45 Influenza Virus Vaccine Quadrival (Afluria Quad 2019-20 (3yr Up) Syringe) 0.5 ml ONCE ONCE VAX IM Last administered on 04/01/19at 10:10; Start 04/01/19 at 08:00; Stop 04/01/19 at 08:01; Status DC Meclizine HCl (Antivert) 25 mg TID PO Last administered on 04/02/19 09:09; Start 04/01/19 at 09:00 Celecoxib (CeleBREX) 100 mg BID PO Last administered on 04/02/19at 09:08; Start 04/01/19 at 09:00 Diazepam (Valium) 5 mg 1X ONCE PO Last administered on 04/01/19at 16:53; St art 04/01/19 at 16:30; Stop 04/01/19 at 16:31; Status DC Diazepam (Valium) 5 mg PRN BID PRN PO ANXIETY Last administered on 04/01/19at 22:37; Start 04/01/19 at 21:00 Metoprolol Tartrate (Lopressor) 25 mg DAILY PO Last administered on 04/02/19 09:09; Start 04/02/19 at 08:30 Active Scripts Active Metoprolol Succinate ( Xl ) (Metoprolol Succinate) 25 Mg Tab.er.24h 1 Tab PO DAILY Valium (Diazepam) 5 Mg Tablet 5 Mg PO BID 7 Days Vitamin B-6 (Pyridoxine Hcl) 50 Mg Tablet 12.5 Mg PO DAILY Meclizine Hcl 12.5 Mg Tablet 12.5 Mg PO PRN Q6HRS PRN Reported Metoprolol Tartrate 25 Mg Tablet 25 Mg PO DAILY Vitals/I & O Vital Sign - Last 24 Hours 04/01/19 04/01/19 04/01/19 04/01/19 11:00 15:00 19:00 20:30 Temp 98.1 98.0 98.6 98.1 98.0 98.6 Pulse 81 76 95 Resp 17 19 18 B/P (MAP) 125/83 (97) 133/88 (103) 126/93 (104) Pulse Ox 97 97 94 O2 Delivery Room Air Room Air Room Air Room Air 04/01/19 04/02/19 04/02/19 04/02/19 23:00 03:00 07:00 09:09 Temp 98.9 97.8 98.9 97.8 Pulse 93 94 94 Resp 18 18 B/P (MAP) 126/89 (101) 145/100 (115) 145/100 Pulse Ox 96 96 O2 Delivery Room Air Room Air Room Air 04/02/19 09:34 Temp 98.0 98.0 Pulse 89 Resp 20 B/P (MAP) 143/104 (117) Pulse Ox 94 O2 Delivery Room Air Intake and Output 04/01/19 04/01/19 04/02/19 15:00 23:00 07:00 Intake Total 120 ml Output Total 1000 ml Balance 120 ml -1000 ml ADRIENNE PAULINO MD Apr 02, 2019 10:05
[2019-04-02] MEDS ORDERED: AZITHROMYCIN 250 MG TABLET. PO ONE (10:30)
[2019-04-02] MEDS ORDERED: CONTRAST GIVEN. MC PRN (10:30)
[2019-04-02 10:50] VITALS: BP 115/88
[2019-04-02] MEDS: FLUTICASONE 50MCG/NASAL SPRAY 16GM BOTTLE. NS SCH (10:51)
[2019-04-02] MEDS ORDERED: IOHEXOL 350 MG/ML 100 ML VIAL. IV ONE (11:00)
--- NOTE | 2019-04-02 12:50 | PDOC ---
PROGRESS NOTES Assessment Problems Medical Problems: (1) Vertigo Status: Acute Vertigo, resolving vestibular neuronitis, no evidence of stroke. Plan Await CTA results Observe one more night, aim for discharge tomorrow Reassurance offered Meclizine 25 mg tid x 1 week. Vit B6 10 mg daily. Subjective feels better, eating Objective Vital Signs Date Time Temp Pulse Resp B/P (MAP) Pulse Ox O2 Delivery O2 Flow Rate FiO2 04/02/19 09:34 98.0 89 20 143/104 (117) 94 Room Air 98.0 Intake and Output 04/02/19 07:00 Intake Total 120 ml Output Total 1000 ml Balance -880 ml Intake Oral 120 ml Output Urine Total 1000 ml PHYSICAL EXAM Alert. Oriented to time, place and person. PERRL. EOMI. no nystagmus CN: no focal findings. Muscle tone: normal. Muscle strength: 5/5 DTR: 2+ Plantar reflex: flexor Gait: A little unsteady Sensory exam: no abnormal findings. No appendicular cerebellar signs elicited. Review of Relevant I have reviewed the following items evens (where applicable) has been applied. Labs Laboratory Tests Test 03/31/19 14:10 03/31/19 19:42 Urine Opiates Screen Neg (NEG) Urine Methadone Screen Neg (NEG) Urine Barbiturates Neg (NEG) Urine Phencyclidine Screen Neg (NEG) Urine Amphetamine/Methamphetamine Neg (NEG) Urine Benzodiazepines Screen Neg (NEG) Urine Cocaine Screen Neg (NEG) Urine Cannabinoids Screen Neg (NEG) Urine Ethyl Alcohol Neg (NEG) Urine Test Negative (NEG) Medications Current Medications Lorazepam (Ativan Inj) 0.5 mg 1X ONCE IV Last administered on 03/31/19at 07:42; Start 03/31/19 at 07:00; Stop 03/31/19 at 07:01; Status DC Sodium Chloride 1,000 ml @ 1,000 mls/hr Q1H IV Last administered on 03/31/19at 07:43; Start 03/31/19 at 06:57; Stop 03/31/19 at 07:56; Status DC Meclizine HCl (Antivert) 50 mg 1X ONCE PO Last administered on 03/31/19at 07:41; Start 03/31/19 at 07:00; Stop 03/31/19 at 07:01; Status DC Meclizine HCl (Antivert) 12.5 mg PRN Q6HRS PRN PO DIZZINESS Last administered on 04/01/19 07:59; Start 03/31/19 at 11:30; Stop 04/01/19 at 08:56; Status DC Sodium Chloride 1,000 ml @ 75 mls/hr [id number] IV Last administered on 04/01/19 02:35; Start 03/31/19 at 11:30; Stop 04/01/19 at 08:29; Status DC Lorazepam (Ativan Inj) 1 mg PRN Q4HRS PRN IVP ANXIETY / AGITATION; Start 03/31/19 at 15:00 Metoprolol Tartrate (Lopressor) 12.5 mg DAILY PO Last administered on 04/01/19 08:00; Start 03/31/19 at 15:00; Stop 04/02/19 at 08:31; Status DC Pyridoxine HCl (Vitamin B-6) 12.5 mg DAILY PO Last administered on 04/02/19 09:08; Start 03/31/19 at 21:00 Acetaminophen (Tylenol) 650 mg PRN Q6HRS PRN PO HEADACHE Last administered on 04/01/19at 15:59; Start 03/31/19 at 22:45 Clonidine HCl (Catapres) 0.1 mg PRN Q1HR PRN PO HYPERTENSION; Start 04/01/19 at 02:45 Influenza Virus Vaccine Quadrival (Afluria Quad 2019-20 (3yr Up) Syringe) 0.5 ml ONCE ONCE VAX IM Last administered on 04/01/19 10:10; Start 04/01/19 at 08:00; Stop 04/01/19 at 08:01; Status DC Meclizine HCl (Antivert) 25 mg TID PO Last administered on 04/02/19 09:09; Start 04/01/19 at 09:00 Celecoxib (CeleBREX) 100 mg BID PO Last administered on 04/02/19 09:08; Start 04/01/19 at 09:00 Diazepam (Valium) 5 mg 1X ONCE PO Last administered on 04/01/19at 16:53; Start 04/01/19 at 16:30; Stop 04/01/19 at 16:31; Status DC Diazepam (Valium) 5 mg PRN BID PRN PO ANXIETY Last administered on 10/11/19at 22:37; Start 04/01/19 at 21:00; Stop 04/02/19 at 10:01; Status DC Metoprolol Tartrate (Lopressor) 25 mg DAILY PO Last administered on 04/02/19at 09:09; Start 04/02/19 at 08:30 Diazepam (Valium) 2 mg PRN BID PRN PO ANXIETY; Start 04/02/19 at 10:00 Fluticasone Propionate (Flonase) 2 spray DAILY NS Last administered on 04/02/19at 10:51; Start 04/02/19 at 11:00 Azithromycin (Zithromax) 500 mg 1X ONCE PO Last administered on 04/02/19at 10:51; Start 04/02/19 at 10:30; Stop 04/02/19 at 10:31; Status DC Azithromycin (Zithromax) 250 mg DAILY PO ; Start 04/03/19 at 09:00 Iohexol (Omnipaque 350 Mg/ml) 75 ml 1X ONCE IV Last administered on 04/02/19at 10:55; Start 04/02/19 at 11:00; Stop 04/02/19 at 11:01; Status DC Info (CONTRAST GIVEN -- Rx MONITORING) 1 each PRN DAILY PRN MC SEE COMMENTS; Start 04/02/19 at 10:30; Stop 04/04/19 at 10:29 Active Scripts Active Metoprolol Succinate ( Xl ) (Metoprolol Succinate) 25 Mg Tab.er.24h 1 Tab PO DAILY Valium (Diazepam) 5 Mg Tablet 5 Mg PO BID 7 Days Vitamin B-6 (Pyridoxine Hcl) 50 Mg Tablet 12.5 Mg PO DAILY Meclizine Hcl 12.5 Mg Tablet 12.5 Mg PO PRN Q6HRS PRN Reported Metoprolol Tartrate 25 Mg Tablet 25 Mg PO DAILY Vitals/I & O Vital Sign - Last 24 Hours 04/01/19 04/01/19 04/01/19 04/01/19 15:00 19:00 20:30 23:00 Temp 98.0 98.6 98.9 98.0 98.6 98.9 Pulse 76 95 93 Resp 19 18 18 B/P (MAP) 133/88 (103) 126/93 (104) 126/89 (101) Pulse Ox 97 94 96 O2 Delivery Room Air Room Air Room Air Room Air 10/12/19 10/12/19 10/12/19 10/12/19 03:00 07:00 09:09 09:34 Temp 97.8 98.0 97.8 98.0 Pulse 94 94 89 Resp 18 20 B/P (MAP) 145/100 (115) 145/100 143/104 (117) Pulse Ox 96 94 O2 Delivery Room Air Room Air Room Air Intake and Output 04/01/19 04/01/19 04/02/19 15:00 23:00 07:00 Intake Total 120 ml Output Total 1000 ml Balance 120 ml -1000 ml Images Brain MRI without contrast. HISTORY: Dizziness. Ataxia. TECHNIQUE: Multiplanar, multisequence magnetic resonance imaging of the brain was performed without contrast. COMPARISON: Head CT dated 03/31/2019. FINDINGS: There is no restricted diffusion to suggest acute or subacute infarction. There is no susceptibility effect to suggest hemorrhage. There is no mass effect or midline shift. There is no hydrocephalus. No convincing white matter lesion is seen. The orbits, paranasal sinuses and mastoid air cells are unremarkable. There are normal flow voids within the cerebral vessels. There is mild diffuse calvarial thickening. IMPRESSION: No acute intracranial finding. MARCIE THORNTON MD Apr 02, 2019 12:50
--- NOTE | 2019-04-02 13:42 | RAD ---
CTA head History: Continued dizziness Technique: After bolus of intravenous contrast, volumetric CT data acquisition was acquired of the head. Multiplanar reconstruction images to include MIP and 3-D reconstruction images are submitted. Exposure: One or more of the following individualized dose reduction techniques were utilized for this examination: 1. Automated exposure control 2. Adjustment of the mA and/or kV according to patient size 3. Use of iterative reconstruction technique. Comparison: There is no previous similar exam available, correlation made with 03/31/2019 MRI brain exam and head CT Any determination of stenosis is based on NASCET criteria. Findings: Contrast bolus is suboptimal and there is motion degradation. Basilar artery is supplied by the right vertebral artery, smaller caliber left vertebral artery primarily terminating in PICA without significant contribution to the basilar artery. There is visualization of right PICA. Basilar artery is diffusely small in caliber, cannot exclude wall irregularity on this motion degraded exam. There is visualization of right posterior communicating artery, not seen on the left. There is visualization of segments of proximal bilateral superior cerebellar arteries. Both internal carotid arteries are seen at the skull base. There is patent anterior communicating artery supplying right A2 and A3 segments, aplastic right A1 segment. There is visualization of segments of the superior sagittal sinus, the entirety of the veins not well opacified during exam. No aneurysm is identified. There is symmetric absence of bony covering of the lateral aspects of the carotid canals at levels of genu of petrous internal carotid arteries bilaterally. No obvious intracranial aneurysm is identified. Impression: 1. Exam is limited as stated due to motion and suboptimal contrast bolus. There is appearance of diffusely small basilar artery, cannot exclude underlying wall irregularity especially if there is any clinical suspicion for vasculitis. Accurate evaluation of the intracranial vessels is limited. 2. 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 3. 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 Electronically signed by: Stewart Busch MD (04/02/2019 1:39 PM) [facility]
[2019-04-02 15:28] VITALS: BP 118/84
[2019-04-02 19:00] VITALS: BP 138/92
[2019-04-02 23:00] VITALS: BP 127/86
[2019-04-03 03:00] VITALS: BP 136/92
[2019-04-03 08:19] VITALS: BP 150/100
[2019-04-03] MEDS: CELECOXIB 100 MG CAPSULE. PO SCH (08:34)
[2019-04-03] MEDS: METOPROLOL TART IMMED RELEASE 25 MG TABLET. PO SCH (08:34)
[2019-04-03] MEDS: MECLIZINE HCL 12.5 MG TABLET. PO SCH (08:34)
[2019-04-03] MEDS: PYRIDOXINE 50 MG TABLET. PO SCH (08:35)
[2019-04-03] MEDS: FLUTICASONE 50MCG/NASAL SPRAY 16GM BOTTLE. NS SCH (08:36)
[2019-04-03] MEDS ORDERED: AZITHROMYCIN 250 MG TABLET. PO SCH (09:00)
--- NOTE | 2019-04-03 09:45 | PDOC3 ---
Discharge Summary Visit Information Date of Admission: Mar 31, 2019 Date of Discharge: Apr 03, 2019 Admitting Diagnosis Comment: vestibular neuritis vertigo, BPPV Obesity BMI 32 HEadache, hx migraines NArcotic naive Final Diagnosis Problems Medical Problems: (1) Vertigo Status: Acute Brief Hospital Course Allergies Allergies Coded Allergies Type Severity Reaction Last Updated Verified Penicillins Allergy Intermediate rash 04/23/17 Yes Vital Signs Vital Signs Date Time Temp Pulse Resp B/P (MAP) Pulse Ox O2 Delivery O2 Flow Rate FiO2 04/03/19 08:34 79 150/100 04/03/19 08:19 97.3 16 97 Room Air 97.3 Lab Results Laboratory Tests Test 04/03/19 05:23 Erythrocyte Sedimentation Rate 25 (0-25) C-Reactive Protein, Quantitative 29.6 mg/L (0-3.3) Laboratory Tests Test 04/03/19 05:23 Erythrocyte Sedimentation Rate 25 (0-25) C-Reactive Protein, Quantitative 29.6 mg/L (0-3.3) Brief Hospital Course Ms. Escobar is a 43 old AA female who has hx migraines, fully functional admitted for vertigo THAT WAS HARD to manage, NO resolve with scheduled meclizine 25 TID and celebrex 100 BDI (for headache). She was initially nauseus first few days could not eat, CT ehad MRI brain then followed by CTA brain was neg, co managed with neuro, Already on Vit B PO qdaily, VAlium was too much for her, BEtter after 3- 4 days stay with azthromycin (PCN hives), Otospcopy ears looked ok Advsied the above meds, ENT ff up if no better and may ff up with PCP or neuro as she wishes Work excuse given Dizzy better but not 100% gone dw time 35 mins Discharge Information Condition at Discharge: Improved, Stable Follow Up: Weeks (neuro or PCP 4 weeks, wdvised ENt ff up too) Disposition/Orders: D/C to Home Scheduled Diazepam (Valium) 5 Mg Tablet, 5 MG PO BID for anxiety from vertigo for 7 Days, #14 Prescribed by: ADRIENNE PAULINO on 04/02/19 0832 Metoprolol Succinate (Metoprolol Succinate ( Xl )) 25 Mg Tab.er.24h, 1 TAB PO DAILY for htn, #30 Ref 5 Prescribed by: ADRIENNE PAULINO on 04/02/19 0832 Metoprolol Tartrate (Metoprolol Tartrate) 25 Mg Tablet, 25 MG PO DAILY for HTN, #60 Ref 0 (Reported) Entered as Reported by: ANGI TERRELL on 03/31/191338 Last Taken: 12.5MG. on 03/31/191336 Last Action: New Order on 03/31/191338 by ANGI TERRELL Pyridoxine Hcl (Vitamin B-6) 50 Mg Tablet, 12.5 MG PO DAILY for vertigo, #60 Prescribed by: ADRIENNE PAULINO on 04/01/19 08 Scheduled PRN Meclizine Hcl (Meclizine Hcl) 12.5 Mg Tablet, 12.5 MG PO PRN Q6HRS PRN for DIZZINESS, #60 Prescribed by: ADRIENNE PAULINO on 04/01/19 08 Discontinued Medications Azithromycin (Azithromycin Tablet) 250 Mg Tablet, 1 PKG PO UD, #6 Prescribed by: JACOBY ANN PA-C on 04/23/171719 Prednisone (Prednisone) 20 Mg Tablet, 2 TAB PO DAILY, #20 Prescribed by: JACOBY ANN PA-C on 04/23/17 1720 ADRIENNE PAULINO MD Apr 03, 2019 09:45
[2019-04-03 10:40] VITALS: BP 132/97
--- NOTE | 2019-04-03 11:23 | PDOC ---
PROGRESS NOTES Assessment Problems Medical Problems: (1) Vertigo Status: Acute Vertigo, resolving vestibular neuronitis, no evidence of stroke. Irregularities noted on CTA, CRP is elevated, but I doubt vasculitis especially with her current improvement Plan Okay for discharge I told her to follow-up with her PCP and repeat the CRP in 1 or 2 weeks Follow-up with me in 4-6 weeks if no better, also will consider outpatient ENT consult Meclizine 25 mg tid x 1 week. Vit B6 10 mg daily. Subjective Feels much better, wants to go home, denies headache, diplopia, dysphagia, dysarthria Objective Vital Signs Date Time Temp Pulse Resp B/P (MAP) Pulse Ox O2 Delivery O2 Flow Rate FiO2 04/03/19 08:34 79 150/100 04/03/19 08:19 97.3 16 97 Room Air 97.3 Intake and Output 04/03/19 06:59 Intake Total 1040 ml Balance 1040 ml Intake Oral 1040 ml # Voids 3 PHYSICAL EXAM Alert. Oriented to time, place and person. PERRL. EOMI. no nystagmus, normal vestibular ocular reflex CN: no focal findings. Muscle tone: normal. Muscle strength: 5/5 DTR: 2+ Plantar reflex: flexor Gait: A little unsteady, better than yesterday Sensory exam: no abnormal findings. No appendicular cerebellar signs elicited. Review of Relevant I have reviewed the following items evens (where applicable) has been applied. Labs Laboratory Tests Test 04/03/19 05:23 Erythrocyte Sedimentation Rate 25 (0-25) C-Reactive Protein, Quantitative 29.6 mg/L (0-3.3) Laboratory Tests Test 04/03/19 05:23 Erythrocyte Sedimentation Rate 25 (0-25) C-Reactive Protein, Quantitative 29.6 mg/L (0-3.3) Medications Current Medications Lorazepam (Ativan Inj) 0.5 mg 1X ONCE IV Last administered on 03/31/19at 07:42; Start 03/31/19 at 07:00; Stop 03/31/19 at 07:01; Status DC Sodium Chloride 1,000 ml @ 1,000 mls/hr Q1H IV Last administered on 03/31/19at 07:43; Start 03/31/19 at 06:57; Stop 03/31/19 at 07:56; Status DC Meclizine HCl (Antivert) 50 mg 1X ONCE PO Last administered on 03/31/19at 07:41; Start 03/31/19 at 07:00; Stop 03/31/19 at 07:01; Status DC Meclizine HCl (Antivert) 12.5 mg PRN Q6HRS PRN PO DIZZINESS Last administered on 04/01/19at 07:59; Start 03/31/19 at 11:30; Stop 04/01/19 at 08:56; Status DC Sodium Chloride 1,000 ml @ 75 mls/hr [id number] IV Last administered on 04/01/19at 02:35; Start 03/31/19 at 11:30; Stop 04/01/19 at 08:29; Status DC Lorazepam (Ativan Inj) 1 mg PRN Q4HRS PRN IVP ANXIETY / AGITATION; Start 03/31/19 at 15:00 Metoprolol Tartrate (Lopressor) 12.5 mg DAILY PO Last administered on 04/01/19at 08:00; Start 03/31/19 at 15:00; Stop 04/02/19 at 08:31; Status DC Pyridoxine HCl (Vitamin B-6) 12.5 mg DAILY PO Last administered on 04/03/19at 08:35; Start 03/31/19 at 21:00 Acetaminophen (Tylenol) 650 mg PRN Q6HRS PRN PO HEADACHE Last administered on 04/01/19at 15:59; Start 03/31/19 at 22:45 Clonidine HCl (Catapres) 0.1 mg PRN Q1HR PRN PO HYPERTENSION; Start 04/01/19 at 02:45 Influenza Virus Vaccine Quadrival (Afluria Quad 2019-20 (3yr Up) Syringe) 0.5 ml ONCE ONCE VAX IM Last administered on 04/01/19at 10:10; Start 04/01/19 at 08:00; Stop 04/01/19 at 08:01; Status DC Meclizine HCl (Antivert) 25 mg TID PO Last administered on 04/03/19at 08:34; Start 04/01/19 at 09:00 Celecoxib (CeleBREX) 100 mg BID PO Last administered on 04/03/19at 08:34; Start 04/01/19 at 09:00 Diazepam (Valium) 5 mg 1X ONCE PO Last administered on 04/01/19at 16:53; Start 04/01/19 at 16:30; Stop 04/01/19 at 16:31; Status DC Diazepam (Valium) 5 mg PRN BID PRN PO ANXIETY Last administered on 04/01/19at 22:37; Start 04/01/19 at 21:00; Stop 04/02/19 at 10:01; Status DC Metoprolol Tartrate (Lopressor) 25 mg DAILY PO Last administered on 04/03/19at 08:34; Start 04/02/19 at 08:30 Diazepam (Valium) 2 mg PRN BID PRN PO ANXIETY; Start 04/02/19 at 10:00 Fluticasone Propionate (Flonase) 2 spray DAILY NS Last administered on 04/03/19at 08:36; Start 04/02/19 at 11:00 Azithromycin (Zithromax) 500 mg 1X ONCE PO Last administered on 04/02/19at 10:51; Start 04/02/19 at 10:30; Stop 04/02/19 at 10:31; Status DC Azithromycin (Zithromax) 250 mg DAILY PO Last administered on 04/03/19at 08:34; Start 04/03/19 at 09:00 Iohexol (Omnipaque 350 Mg/ml) 75 ml 1X ONCE IV Last administered on 04/02/19at 10:55; Start 04/02/19 at 11:00; Stop 04/02/19 at 11:01; Status DC Info (CONTRAST GIVEN -- Rx MONITORING) 1 each PRN DAILY PRN MC SEE COMMENTS; Start 04/02/19 at 10:30; Stop 04/04/19 at 10:29 Active Scripts Active Metoprolol Succinate ( Xl ) (Metoprolol Succinate) 25 Mg Tab.er.24h 1 Tab PO DAILY Valium (Diazepam) 5 Mg Tablet 5 Mg PO BID 7 Days Vitamin B-6 (Pyridoxine Hcl) 50 Mg Tablet 12.5 Mg PO DAILY Meclizine Hcl 12.5 Mg Tablet 12.5 Mg PO PRN Q6HRS PRN Reported Metoprolol Tartrate 25 Mg Tablet 25 Mg PO DAILY Vitals/I & O Vital Sign - Last 24 Hours 04/02/19 04/02/19 04/02/19 04/02/19 15:28 19:00 20:00 23:00 Temp 98.6 98.5 98.1 98.6 98.5 98.1 Pulse 86 91 96 Resp 20 16 17 B/P (MAP) 118/84 (95) 138/92 (107) 127/86 (100) Pulse Ox 96 97 95 O2 Delivery Room Air Room Air Room Air Room Air 04/03/19 04/03/19 04/03/19 04/03/19 03:00 07:00 08:10 08:19 Temp 97.7 97.3 97.7 97.3 Pulse 78 79 Resp 17 16 B/P (MAP) 136/92 (107) 150/100 (117) Pulse Ox 98 97 O2 Delivery Room Air Room Air Room Air Room Air 04/03/19 08:34 Pulse 79 B/P (MAP) 150/100 Intake and Output 04/02/19 04/02/19 04/03/19 14:59 22:59 06:59 Intake Total 120 ml 260 ml 660 ml Balance 120 ml 260 ml 660 ml Images CTA head History: Continued dizziness Technique: After bolus of intravenous contrast, volumetric CT data acquisition was acquired of the head. Multiplanar reconstruction images to include MIP and 3-D reconstruction images are submitted. Exposure: One or more of the following individualized dose reduction techniques were utilized for this examination: 1. Automated exposure control 2. Adjustment of the mA and/or kV according to patient size 3. Use of iterative reconstruction technique. Comparison: There is no previous similar exam available, correlation made with 03/31/2019 MRI brain exam and head CT Any determination of stenosis is based on NASCET criteria. Findings: Contrast bolus is suboptimal and there is motion degradation. Basilar artery is supplied by the right vertebral artery, smaller caliber left vertebral artery primarily terminating in PICA without significant contribution to the basilar artery. There is visualization of right PICA. Basilar artery is diffusely small in caliber, cannot exclude wall irregularity on this motion degraded exam. There is visualization of right posterior communicating artery, not seen on the left. There is visualization of segments of proximal bilateral superior cerebellar arteries. Both internal carotid arteries are seen at the skull base. There is patent anterior communicating artery supplying right A2 and A3 segments, aplastic right A1 segment. There is visualization of segments of the superior sagittal sinus, the entirety of the veins not well opacified during exam. No aneurysm is identified. There is symmetric absence of bony covering of the lateral aspects of the carotid canals at levels of genu of petrous internal carotid arteries bilaterally. No obvious intracranial aneurysm is identified. Impression: 1. Exam is limited as stated due to motion and suboptimal contrast bolus. There is appearance of diffusely small basilar artery, cannot exclude underlying wall irregularity especially if there is any clinical suspicion for vasculitis. Accurate evaluation of the intracranial vessels is limited. 2. 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 3. 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 MARCIE THORNTON MD Apr 03, 2019 11:23
--- NOTE | 2019-04-03 11:57 | NUR ---
Discharge Note: KIRA NAIDU Discharge instructions and discharge home medications reviewed with Patient and a copy given. All questions have been answered and understanding verbalized. The following instructions and handouts were given: discharge instructions, new prescriptions, education and follow up recommendations. Discontinued lines and drains: Peripheral IV discontinued intact. Patient discharged to Home or Self Care with Spouse via Wheelchair off unit by RN.
== END 2019-04-03 11:58 | disposition home or self-care (01) | DRG 149 ==
LOC: ER 06:44 → 5 SOUTH 09:33 → OBSVTOIN 04-02 10:01
PROVIDERS: ADMIT Internal Medicine; ATTEND Internal Medicine
DX: H81.20 Vestibular neuronitis, unspecified ear (principal); H81.10 Benign paroxysmal vertigo, unspecified ear; I10 Essential (primary) hypertension; L50.0 Allergic urticaria; E66.9 Obesity, unspecified; G43.909 Migraine, unspecified, not intractable, without status migrainosus; T36.0X5A Adverse effect of penicillins, initial encounter; Z68.32 Body mass index [BMI] 32.0-32.9, adult; Z82.49 Family history of ischemic heart disease and other diseases of the circulatory system; Z87.891 Personal history of nicotine dependence
CPT/HCPCS: 36415; 70450; 70496; 70551; 80053; 80307; 81025; 84484; 85007; 85025; 85651; 86140; 90471; 90686; 93005; 96361; 96374; G0378; G0379; J2060; J7030; J8597; Q0144; Q9967; 97110; 97530; 99285-25